=== PATIENT | male | born 1995 | race Caucasian/White ===

== ENCOUNTER 2023-12-13 09:17 | Emergency (ER) | payer BC, SELFPAY ==
[2023-12-13 09:28] VITALS: BP 108/67
[2023-12-13 11:04] VITALS: BP 125/84; BMI 26.8
[2023-12-13 11:14] LABS: % Basophils 0.8 % (0-2); % Immature Granulocytes 0.3 % (0-0.5); % Lymphocytes 37.6 % (20.5-51.1); % Monocytes 6.6 % (1.7-9.3); % Neutrophils 52.7 % (42.2-75.2); Absolute Eosinophils 0.1 10^3/uL (0-0.7); Absolute Lymphocytes 1.5 10^3/uL (1.2-3.4); Absolute Monocytes 0.3 10^3/uL (0.1-0.6); Absolute Neutrophils 2.1 10^3/uL (1.4-6.5); Hematocrit 42.8 % (39.0-52.0); Hemoglobin 15.2 g/dL (13.0-18.0); Mean Corp Hgb Conc. 35.5 g/dL (33.0-37.0); Mean Corpuscular Hgb 30.5 pg (27.0-31.0); Mean Corpuscular Volume 85.8 fL (80.0-94.0); Mean Platelet Volume 10.5 fL (7.4-10.4); Nucleated Red Blood Cells % 0 % (-); Platelet Count 214 10^3/uL (130-400); Red Blood Cell Count 4.99 10^6/uL (4.70-6.10); Red Cell Dist. Width 12.3 % (11.5-14.5)
--- NOTE | 2023-12-13 11:16 | ED.GENMED ---
History of Present Illness
General
Chief Complaint: Abdominal Pain
Source: patient and family
Exam Limitations: none
Time Seen by Provider: 12/13/23 11:00
Nursing documentation reviewed up to this point in time: agreed with
Travel History
Have you had any contact with someone who has COVID-19?: No
Do you have any symptoms of coronavirus? Fever > 100 degrees, chills, cough, shortness of breath, sore throat, loss of taste or smell, muscle aches, or headache?: No
History of Present Illness
History of Present Illness:
Patient is a 28-year-old male who presents to the ER with family. Patient reports he has had issues with reflux for the past 3 months. He has been seen by GI at [facility] and had an endoscopy which showed reflux esophagitis and mild chronic
gastritis. Pt has report here on his portal. It was negative for Calvillo's negative for H. pylori. He has tried multiple medications including Mylanta Gaviscon Tums prescribed Nexium and Prilosec all which did not work. He is now on Aciphex 20
mg twice daily and famotidine 40 mg a day but still is having symptoms. He has burning in the back of his throat and at times gets it in his chest worse with laying down. He has lost weight because he is not eating at times it is worse with
eating. He also complains of pain to his left side of his abdomen intermittently with symptoms. Parents are at bedside and are concerned that something more is going on. Mom has a history of Crohn's and is concerned about Crohn's. Patient denies
any actual nausea vomiting diarrhea or constipation. He does however complain of mild as document left-sided lower abdominal pain.
Patient has an appointment with Dr. Wilson here (as he is switching practices ) on December 27 .
Review of Systems
Review of Systems
Allergies reviewed?: Yes
All Other Systems: ROS reviewed and negative except as documented in HPI and ROS
Constitutional: Reports no symptoms; Denies fever, fatigue or chills
EENT: Reports no symptoms
Respiratory: Reports no symptoms
Cardiac: Reports no symptoms
ABD/GI: Reports abdominal pain and other (burning in throat and chest ); Denies nausea, vomiting or diarrhea
: Reports no symptoms
Musculoskeletal: Reports no symptoms
Skin: Reports no symptoms
Neurological: Reports no symptoms
Hematologic/Lymphatic: Reports no symptoms
Psychiatric: Reports no symptoms
Phy Exam
General Physical Exam
General Presentation: no apparent distress
General age: appears stated age
General Skin: warm and dry
General Habitus: normal
General Mental: alert
General Hydration: appears well hydrated
Cardiovascular Exam
Cardiovascular Exam: regular rate/rhythm, no murmur and normal peripheral pulses
Pulmonary Exam
Pulmonary Exam: lungs clear and no respiratory distress
Gastrointestinal Exam
Gastrointestinal Exam: non tender and soft
Course
Orders/Labs/Results
Orders:
Orders
12/13/23 10:55
IV Insert/Care/Rem.- Treatment PRN
12/13/23 11:03
Complete Blood Count/With Diff Urgent
Comprehensive Metabolic Panel Urgent
Lipase Urgent
12/13/23 11:17
Iohexol [Omnipaque] See Protocol PO NOW STA
Mag Hydrox/Al Hydrox/Simeth [Maalox] 30 ml Phenobarb/Hyoscy/Atropine/Scop [] 10 ml PO NOW
12/13/23 11:18
CT Abd/pel W Iv And Oral Contr Urgent
Comment:
Reason For Exam: abd pain
12/13/23 11:25
Mag Hydrox/Al Hydrox/Simeth [Maalox] 30 ml .ROUTE .STK-MED ONE
Phenobarb/Hyoscy/Atropine/Scop [] 10 ml .ROUTE .STK-MED ONE
12/13/23 13:06
Urinalysis Reflex To Culture Urgent
Date Specimen was Collected: 12/13/23
Time Specimen was Collected: 10:55
Abnormal Lab Results
12/13/23
11:03
WBC 4.0 L 10^3/uL
(4.8-10.8)
MPV 10.5 H fL
(7.4-10.4)
12/13/23 11:03
12/13/23 11:03
Vital Signs
Initial and Last Documented VS:
Initial Vital Signs
Temp Pulse BP Pulse Ox
98.1 F 54 108/67 100
12/13/23 09:28 12/13/23 09:28 12/13/23 09:28 12/13/23 09:28
Last Documented Vital Signs
Temp Pulse BP Pulse Ox
98.1 F 49 105/67 100
12/13/23 09:28 12/13/23 15:25 12/13/23 12:00 12/13/23 15:25
MDM/Problems Addressed
MDM/Problems Addressed:
Patient is a 28-year-old male who previously had endoscopy and workup at [facility] and was diagnosed with esophagitis gastritis and has been on multiple PPIs Tums etc. complaining of continuing burning sensation chest and throat. Mom is
concerned that this is something more as the symptoms are not improving. He does have appointment with Dr. Meri Borrero of here at [place] December 27. He presents awake alert no acute distress abdomen soft nontender CAT scan was done and
unremarkable except for constipation.
Patient was given a GI cocktail which has not seemed to improve his symptoms. He does have Aciphex at home. Will give patient Carafate to use 1 g every 6 hours in addition to his Aciphex. He is following very strict diet and avoiding acidic foods
caffeine etc. He is nontoxic labs are completely unremarkable. Patient was instructed on MiraLAX if needed for constipation .
*Radiology
Radiology exam reviewed: radiology read reviewed
*Pulse Oximetry
Patient hypoxic: no
*Critical Care Note
Total Time (30-74mins, 75-104mins- exclusive of procedures): Not Applicable
ED Attending Note
-
Portions of this chart may have been created with voice recognition software.� Occasional wrong word or��sound alike� substitutions may have occurred due to the inherent limitations of voice recognition software.
Discharge Plan
Departure
Patient Disposition: Home (Routine Discharge)
Date of Disposition: 12/13/23
Time of Disposition: 15:53
Patient with high blood pressure during this ER visit?: No
Condition: Good
Covid-19: Not Applicable
Discharge Problem:
GERD (gastroesophageal reflux disease)
Prescriptions:
New
sucralfate [Carafate] 100 mg/mL suspension
10 ml PO QID Qty: 400 0RF
Referrals:
Alex Wilson MD [Family Provider] -
Activity Restrictions/Additional Instructions:
As discussed continue Aciphex. A prescription for Carafate was sent to your pharmacy take as directed. Follow-up with GI as discussed. Return if any worsening of symptoms. You may take MiraLAX as needed for constipation.
Interventions
Interventions:
*Risk Screen - Suicide Last Done: 12/13/23 11:35
*General Assessment Last Done: 12/13/23 11:35
*Neglect/Abuse Screening Last Done: 12/13/23 11:35
ED- Fall Risk Assessment Last Done: 12/13/23 11:05
UR-Inekbi-Rutdnojjew Assessment Last Done: 12/13/23 11:05
ED- Neurological Assessment Last Done: 12/13/23 11:05
ED-Psychological Assessment Last Done: 12/13/23 15:25
Discharge Date and Time
Print Language: HUNGARIAN
[2023-12-13 11:23] LABS: ALT (SGPT) 21 U/L (0-50); AST (SGOT) 34 U/L (17-59); Albumin 4.8 g/dl (3.5-5.0); Alkaline Phosphatase 68 U/L (38-126); Blood Urea Nitrogen 9 mg/dl (9-20); Carbon Dioxide 27 mmol/L (22-30); Chloride 105 mmol/L (98-107); Estimated Creatinine Clearance 124 ml/min; Glucose 92 mg/dl (70-99); Potassium 3.9 mmol/L (3.5-5.1); Sodium 142 mmol/L (135-145); Total Bilirubin 0.9 mg/dl (0.2-1.3); Total Protein 7.8 g/dl (6.3-8.2); eGFR > 60.00
[2023-12-13 11:27] LABS: Lipase 87 U/L (23-300)
[2023-12-13] MEDS: MAALOX 40 PO (11:28)
[2023-12-13] MEDS: OMNIPAQUE 50 ML PO (11:29)
[2023-12-13 12:00] VITALS: BP 105/67
[2023-12-13 13:23] LABS: Urine Albumin Negative (Neg - Trace); Urine Bilirubin Negative (Negative); Urine Character Clear (Clear); Urine Color Yellow; Urine Glucose Negative (Negative); Urine Ketone Negative (Negative); Urine Leukocyte Negative (Negative); Urine Nitrite Negative (Negative); Urine Occult Blood Negative (Negative); Urine Urobilinogen Negative (Neg - 1+)
[2023-12-13] MEDS: CARAFATE SUSPENSION 1 GM PO (15:50)
[2023-12-13 16:08] VITALS: BP 116/61
== END 2023-12-13 16:08 | disposition home or self-care (01) ==
LOC: EMR 09:17
PROVIDERS: EMERGENCY PHYSICIAN Emergency Medicine; FAMILY PHYSICIAN Internal Medicine Gastroenterology
DX: K21.00 Gastro-esophageal reflux disease with esophagitis, without bleeding (principal); Z87.19 Personal history of other diseases of the digestive system
CPT/HCPCS: 99284; 74177; 80053; 81003; 83690; 85025; Q9967

== ENCOUNTER → 2024-02-03 08:08 | Outpatient (REF) | payer BC, SELFPAY | LOC: RAD 08:08 | PROVIDERS: ATTENDING PHYSICIAN Internal Medicine Gastroenterology | DX: R12 Heartburn (principal) | CPT/HCPCS: 78264; A9541 ==

== ENCOUNTER → 2024-05-16 06:20 | Day surgery (SDC) | payer BC, SELFPAY | LOC: GI 06:20 | PROVIDERS: ATTENDING PHYSICIAN Internal Medicine Gastroenterology | DX: K22.89 Other specified disease of esophagus (principal); K44.9 Diaphragmatic hernia without obstruction or gangrene; K25.9 Gastric ulcer, unspecified as acute or chronic, without hemorrhage or perforation; R10.84 Generalized abdominal pain; R12 Heartburn; K29.50 Unspecified chronic gastritis without bleeding; K31.89 Other diseases of stomach and duodenum | CPT/HCPCS: 43239; 88305; 88342 ==

== ENCOUNTER → 2024-12-25 09:57 | Outpatient (REF) | payer BC, SELFPAY | LOC: RAD 09:57 | PROVIDERS: ATTENDING PHYSICIAN Internal Medicine | DX: K21.9 Gastro-esophageal reflux disease without esophagitis (principal) | CPT/HCPCS: 74221 ==